=== PATIENT | female | born 1985 | race Caucasian/White ===

== ENCOUNTER → 2017-11-26 | Outpatient (REF) | payer OTHER ==
[2017-11-30 14:13] LABS: HPV HYBRID CAPTURE II Negative (Negative)
== END ==
LOC: M LAB REF 18:40
DX: Z12.4 Encounter for screening for malignant neoplasm of cervix (principal)

== ENCOUNTER → 2018-12-03 | Outpatient (REF) | payer OTHER ==
[2018-12-06 00:07] LABS: HPV HYBRID CAPTURE II Negative (Negative)
== END ==
LOC: M LAB REF 18:52
PROVIDERS: ATTEND Advanced Practice Midwife
DX: Z12.4 Encounter for screening for malignant neoplasm of cervix (principal)
CPT/HCPCS: 87624; G0123

== ENCOUNTER → 2018-12-09 | Outpatient (CLI) | payer BC, OTHER ==
--- NOTE | 2018-12-09 09:57 | REPMRS ---
Patient History The patient states she had a clinical breast exam in November 2018. Benign ultrasound-guided core biopsy of both breasts, 2013. Taking hormonal contraceptives for 2 years. Digital Mammo Screening Bilat: December 09, 2018 - Exam #: [id number] Bilateral CC and MLO view(s) were taken. Technologist: Daina Ying, Technologist Prior study comparison: October 16, 2016, bilateral digital mammo screening bilat performed at [facility]. February 14, 2015, right breast diagnostic unilateral mammo, performed at [facility]. January 24, 2015, digital bilateral screening mammo, performed at [facility]. FINDINGS: The breast tissue is extremely dense which could obscure a lesion on mammography. A needle biopsy marker clip is again noted in a stable nodule in the right breast unchanged. There is an extremely dense symmetrical pattern of residual fibroglandular tissue. There has been no change in the appearance of the mammogram from the previous studies. There is no interval development of dominant mass, archetectural distortion, or microcalcific cluster suggestive of malignancy. 3-D tomosynthesis shows no additional findings. Assessment: BI-RADS/ACR category 2 mammogram. Benign Findings. Recommendation Routine screening mammogram of both breasts in 1 year (for women over age 40). This patient's Lifetime Breast Cancer RIsk is estimated at 11.7 %. This mammogram was interpreted with the aid of an FDA-approved computer-aided dectection system. Electronically Signed By: Luigi Dasilva MD 12/09/18 0957
== END ==
LOC: M RAD 08:58
PROVIDERS: ATTEND Advanced Practice Midwife
DX: Z12.31 Encounter for screening mammogram for malignant neoplasm of breast (principal)

== ENCOUNTER → 2019-12-31 | Outpatient (REF) | payer BC ==
[2019-12-31 20:08] LABS: CHLAMYDIA DNA AMPLIFICATION NEGATIVE (NEGATIVE); GC DNA AMPLIFICATION NEGATIVE (NEGATIVE)
== END ==
LOC: M SFHCWAGY 17:41
PROVIDERS: ATTEND Advanced Practice Midwife
DX: Z30.430 Encounter for insertion of intrauterine contraceptive device (principal)

== ENCOUNTER → 2020-05-05 | Outpatient (REF) | payer BC ==
[2020-05-05 12:28] LABS: ALBUMIN 4.2 GM/DL (3.2-5.2); ALT/SGPT 29 U/L (12-78); BILIRUBIN,TOTAL 0.5 MG/DL (0.2-1.0); BLOOD UREA NITROGEN 14 MG/DL (7-18); CALCIUM LEVEL 9.5 MG/DL (8.5-10.1); CARBON DIOXIDE LEVEL 27 MEQ/L (21-32); CHLORIDE LEVEL 108 MEQ/L (98-107); CHOLESTEROL LEVEL 176 MG/DL (<200); CHOLESTEROL RISK RATIO 2.626 (<5); CREATININE FOR GFR 0.86 MG/DL (0.55-1.30); FREE T4 1.04 NG/DL (0.76-1.46); GLOMERULAR FILTRATION RATE > 60.0 (>60); GLUCOSE, FASTING 91 MG/DL (70-100); HDL CHOLESTEROL 67 MG/DL (>40); LDL CHOLESTEROL 90 MG/DL (<100); NON-HDL-C 109 MG/DL; POTASSIUM SERUM 4.5 MEQ/L (3.5-5.1); SODIUM LEVEL 142 MEQ/L (136-145); TOTAL 25(OH) VITAMIN D 18.3 NG/ML (30.0-100.0); TOTAL PROTEIN 7.2 GM/DL (6.4-8.2); TRIGLYCERIDES LEVEL 96 MG/DL (<150)
== END ==
LOC: M PLALAB 08:30
PROVIDERS: ATTEND Nurse Practitioner Family
DX: Z83.3 Family history of diabetes mellitus (principal); G43.109 Migraine with aura, not intractable, without status migrainosus; F41.9 Anxiety disorder, unspecified; Z13.220 Encounter for screening for lipoid disorders

== ENCOUNTER → 2020-08-16 | Outpatient (REF) | payer BC | LOC: M PLALAB 14:08 | PROVIDERS: ATTEND Nurse Practitioner Family | DX: E55.9 Vitamin D deficiency, unspecified (principal) ==

== ENCOUNTER → 2020-09-24 | Outpatient (CLI) | payer SELFPAY | LOC: M LABSMTC 12:13 | PROVIDERS: ATTEND Pediatrics | DX: Z20.828 Contact with and (suspected) exposure to other viral communicable diseases (principal) ==

== ENCOUNTER → 2020-10-25 | Outpatient (CLI) | payer SELFPAY | LOC: M LABSMTC 11:26 | PROVIDERS: ATTEND Pediatrics | DX: Z20.828 Contact with and (suspected) exposure to other viral communicable diseases (principal) ==

== ENCOUNTER → 2021-02-15 | Outpatient (REF) | payer BC | LOC: M SFHCPLAZ 08:37 | PROVIDERS: ATTEND Nurse Practitioner Family | DX: E55.9 Vitamin D deficiency, unspecified (principal) ==

== ENCOUNTER → 2021-08-22 | Outpatient (CLI) | payer BC | LOC: M PLALAB 11:35 | PROVIDERS: ATTEND Nurse Practitioner Family | DX: E55.9 Vitamin D deficiency, unspecified (principal) ==

== ENCOUNTER → 2023-05-14 | Outpatient (CLI) | payer BC ==
[2023-05-14 13:51] LABS: HEMATOCRIT 40.9 % (36.0-47.0); HEMOGLOBIN 13.5 g/dl (12.0-15.5); MEAN CORPUSCULAR HEMOGLOBIN 29.8 pg (27.0-33.0); MEAN CORPUSCULAR VOLUME 90.3 fl (80.0-96.0); PLATELET COUNT, AUTOMATED 237 10^3/uL (150-450); RED BLOOD COUNT 4.53 10^6/uL (4.00-5.40); WHITE BLOOD COUNT 4.9 10^3/uL (4.0-10.0)
[2023-05-14 13:55] LABS: ALKALINE PHOSPHATASE 49 U/L (46-116); ALT/SGPT < 9 U/L (7.0-40); AST/SGOT < 8 U/L (<34); BILIRUBIN,TOTAL 0.9 MG/DL (0.3-1.2); BLOOD UREA NITROGEN 12 MG/DL (9-23); CALCIUM LEVEL 9.1 MG/DL (8.5-10.1); CARBON DIOXIDE LEVEL 28 MMOL/L (20-31); CHLORIDE LEVEL 107 MMOL/L (98-107); GLOMERULAR FILTRATION RATE > 60.0 (>60); GLUCOSE, FASTING 71 MG/DL (60-100); POTASSIUM SERUM 4.4 MMOL/L (3.5-5.1); SODIUM LEVEL 140 MMOL/L (136-145); TOTAL PROTEIN 6.8 G/DL (5.7-8.2)
== END ==
LOC: M PLALAB 11:35
PROVIDERS: ATTEND Nurse Practitioner Adult Health
DX: Z00.00 Encounter for general adult medical examination without abnormal findings (principal)

== ENCOUNTER → 2024-05-05 | Outpatient (CLI) | payer BC ==
[2024-05-05 13:26] LABS: HEMATOCRIT 40.3 % (36.0-47.0); HEMOGLOBIN 13.6 g/dl (12.0-15.5); MEAN CORPUSCULAR HEMOGLOBIN 29.9 pg (27.0-33.0); MEAN CORPUSCULAR HGB CONC 33.7 g/dl (32.0-36.5); MEAN CORPUSCULAR VOLUME 88.6 fl (80.0-96.0); PLATELET COUNT, AUTOMATED 257 10^3/uL (150-450); RED BLOOD COUNT 4.55 10^6/uL (4.00-5.40); WHITE BLOOD COUNT 4.9 10^3/uL (4.0-10.0)
[2024-05-05 13:49] LABS: ALBUMIN 4.1 G/DL (3.2-5.2); ALKALINE PHOSPHATASE 56 U/L (46-116); ALT/SGPT 22 U/L (7.0-40); AST/SGOT 12 U/L (<34); BILIRUBIN,TOTAL 0.9 MG/DL (0.3-1.2); BLOOD UREA NITROGEN 9 MG/DL (9-23); CALCIUM LEVEL 9.6 MG/DL (8.5-10.1); CARBON DIOXIDE LEVEL 28 MMOL/L (20-31); CHLORIDE LEVEL 108 MMOL/L (98-107); CHOLESTEROL LEVEL 168 MG/DL (<200); CHOLESTEROL RISK RATIO 2.61 (<5); CREATININE FOR GFR 0.97 MG/DL (0.55-1.30); GLOMERULAR FILTRATION RATE > 60.0 (>58); GLUCOSE, FASTING 84 MG/DL (60-100); HDL CHOLESTEROL 64.3 MG/DL (>40); LDL CHOLESTEROL 91.1 MG/DL (<100); NON-HDL-C 103.7 MG/DL; POTASSIUM SERUM 4.1 MMOL/L (3.5-5.1); SODIUM LEVEL 142 MMOL/L (136-145); TOTAL PROTEIN 6.7 G/DL (5.7-8.2); TRIGLYCERIDES LEVEL 63 MG/DL (<150)
[2024-05-05 13:51] LABS: FREE T4 1.26 NG/DL (0.89-1.76); THYROID STIMULATING HORMONE 1.423 uIU/ML (0.55-4.78)
== END ==
LOC: M PLALAB 11:39
PROVIDERS: ATTEND Nurse Practitioner Adult Health
DX: Z00.00 Encounter for general adult medical examination without abnormal findings (principal); E55.9 Vitamin D deficiency, unspecified; Z82.49 Family history of ischemic heart disease and other diseases of the circulatory system

== ENCOUNTER → 2024-06-20 | Outpatient (CLI) | payer BC | LOC: M WHC 07:25 | PROVIDERS: ATTEND Nurse Practitioner Adult Health | DX: Z12.31 Encounter for screening mammogram for malignant neoplasm of breast (principal); R92.343 Mammographic extreme density, bilateral breasts ==

== ENCOUNTER → 2024-09-04 | Outpatient (CLI) | payer BC | LOC: M PLAIMG 08-29 07:22 → M CARPUL 14:11 | PROVIDERS: ATTEND Nurse Practitioner Adult Health | DX: Z82.49 Family history of ischemic heart disease and other diseases of the circulatory system (principal) ==

== ENCOUNTER → 2025-06-03 | Outpatient (CLI) | payer BC ==
[2025-06-03 11:07] LABS: ALT/SGPT 41.0 U/L (7.0-40); AST/SGOT 30.0 U/L (<34); CALCIUM LEVEL 10.0 MG/DL (8.5-10.1); CARBON DIOXIDE LEVEL 28.0 MMOL/L (20-31); CHLORIDE LEVEL 106.0 MMOL/L (98-107); CHOLESTEROL LEVEL 182.0 MG/DL (<200); CHOLESTEROL RISK RATIO 2.63 (<5); CREATININE FOR GFR 1.03 MG/DL (0.55-1.30); GLOMERULAR FILTRATION RATE 70.1 (>58); LDL CHOLESTEROL 104.3 MG/DL (<100); NON-HDL-C 112.9 MG/DL; POTASSIUM SERUM 4.1 MMOL/L (3.5-5.1); SODIUM LEVEL 146.0 MMOL/L (136-145); TRIGLYCERIDES LEVEL 43.0 MG/DL (<150)
[2025-06-03 11:10] LABS: FREE T4 1.34 NG/DL (0.89-1.76)
[2025-06-03 11:13] LABS: PLATELET COUNT, AUTOMATED 270 10^3/uL (150-450)
== END ==
LOC: M PLALAB 08:07
PROVIDERS: ATTEND Nurse Practitioner Adult Health
DX: Z00.00 Encounter for general adult medical examination without abnormal findings (principal); Z82.49 Family history of ischemic heart disease and other diseases of the circulatory system; E55.9 Vitamin D deficiency, unspecified

== ENCOUNTER → 2025-07-09 | Outpatient (CLI) | payer BC | LOC: M WHC 06:42 | PROVIDERS: ATTEND Nurse Practitioner Adult Health | DX: Z12.31 Encounter for screening mammogram for malignant neoplasm of breast (principal) ==